=== PATIENT | female | born 1975 | race Caucasian/White ===

== ENCOUNTER 2017-10-16 17:19 | Emergency (ER) | payer SELFPAY ==
--- NOTE | 2017-10-16 19:06 | PD ---
HPI Chief Complaint low fluid Date Seen: Oct 16, 2017 Time Seen: 18:48 Travel History International Travel<30 Days: No Contact w/Intl Traveler<30Days: No Known Affected Area: No History of Present Illness HPI pt. is a at 39 5/7 weeks swedish speaking, with edc 10/19/17, c/o decreased fluid. pt. having care in [place], and here visiting family. pt. states received call today from ob stating fluid was low and go to hospital. pt. was sched for pnv today and missed. +FM, no lof/vb, no ctxs. Weeks Gestation: 39 Para: 5 : 6 History Obstetric History Obstetric History , x 5 Past Surgical History Surgical History: No Previous Surgery Family History Family History: Negative Social History Alcohol Use: No Tobacco Use: No Substance Abuse: No Review of Systems Except as stated in HPI: all other systems reviewed are Neg Physical Exam Narrative GENERAL: Well-nourished, well-developed patient. SKIN: Warm and dry. HEAD: Normocephalic and atraumatic. EYES: No scleral icterus. No injection or drainage. ENT: No nasal drainage noted. Mucous membranes pink. Airway patent. NECK: Supple, trachea midline. No JVD. CARDIOVASCULAR: Regular rate and rhythm without murmurs, gallops, or rubs. RESPIRATORY: Breath sounds equal bilaterally. No accessory muscle use. BREASTS: Bilateral exam showed no masses , no retractions, no nipple discharge. ABDOMEN/GI: Abdomen soft, non-tender, bowel sounds present, no rebound, no guarding Gravid Uterine Contractions: none FHT's: Category:1 Reactive: + Variability: mod Decels: none EXTREMITIES: No cyanosis or edema. BACK: Nontender without obvious deformity. No CVA tenderness. NEUROLOGICAL: Awake and alert. Motor and sensory grossly within normal limits. Five out of 5 muscle strength in all muscle groups. Normal speech. Data Data Orders Orders Heart Surgeon Clear For Discharge (10/16/17 ) Group B Strep: Positive MDM Medical Record Reviewed: Yes Plan pt. to be d/c to home. we obtained a copy of her records. pt. has signed consent for tubal. pt. aarti=16cm. pt. given precautions for return. modified bpwnl. pt. to f/u as sched. Diagnosis Diagnosis: Primary Impression: 39 weeks gestation of Additional Impression: AARTI (amniotic fluid index) decreased David Colon Jr., MD Oct 16, 2017 19:06
== END 2017-10-16 19:25 | disposition home or self-care (01) ==
LOC: HOBED 17:19
DX: O42.92 Full-term premature rupture of membranes, unspecified as to length of time between rupture and onset of labor (principal); Z3A.39 39 weeks gestation of pregnancy
CPT/HCPCS: 59025; 76815

== ENCOUNTER 2017-10-20 09:55 | Emergency (ER) | payer SELFPAY ==
--- NOTE | 2017-10-20 10:45 | PD ---
HPI Chief Complaint Labor Check Date Seen: Oct 20, 2017 Time Seen: 10:00 Travel History International Travel<30 Days: No Contact w/Intl Traveler<30Days: No Known Affected Area: No History of Present Illness HPI 41YO at 40/1 weeks singaporean speaking with EDC 10/19/[place] 20 [place] presents for a labor check. Pt gets PNC in [facility] at the [facility] and was last seen in September (and in this ED on 10/17). Pt is homeless and is currently staying with her sister and her . Pt denies contractions, vaginal bleeding and loss of fluid. Denies GDM and HTN during . All previous deliveries were without complications but all required induction. Denies previous infection during . She is taking a multivitamin and labs have indicated she is GBS+ with no other abnormal lab values. Denies EtOH, tobacco, drugs. Tenebril interpreter deaf was used during the first call (CarFin [id number]) and during/after the cervical exam by Dr Glaser a second call was placed ([phone] [id number] ) to discuss discharge and provide information/education to the pt. Weeks Gestation: 40 Para: 4 : 6 History Past Medical History Medical History: Denies Significant Hx Obstetric History Obstetric History Past Surgical History Narrative Surgical D&C 2015 Family History Narrative Family History Diabetes Social History Alcohol Use: No Tobacco Use: No Substance Abuse: No Allergies-Medications (Allergen,Severity, Reaction): Coded Allergies: No Known Allergies (Unverified , 10/20/17) Narrative Medication vitamin Review of Systems General / Constitutional: No: Fever, Chills Eyes: No: Blurred Vision, Pain HENT: No: Headaches, Lightheadedness Cardiovascular: No: Chest Pain or Discomfort, Palpitations Respiratory: Short of Breath (occasional), No: Cough Gastrointestinal: No: Nausea, Vomiting, Diarrhea, Abdominal Pain Genitourinary: No: Dysuria Musculoskeletal: Pain (back pain), No: Weakness, Cramping Skin: No Rash Neurologic: No: Dizziness Physical Exam Temp 97.6 / HR 62 / BP 130/78 Narrative GENERAL: Well-nourished, well-developed patient. SKIN: Warm and dry. HEAD: Normocephalic and atraumatic. EYES: No scleral icterus. No injection or drainage. ENT: No nasal drainage noted. Mucous membranes pink. Airway patent. NECK: Supple, trachea midline. No JVD. CARDIOVASCULAR: Regular rate and rhythm without murmurs, gallops, or rubs. RESPIRATORY: Breath sounds equal bilaterally. No accessory muscle use. BREASTS: Bilateral exam showed no masses , no retractions, no nipple discharge. ABDOMEN/GI: Abdomen soft, non-tender, bowel sounds present, no rebound, no guarding Gravid to 40 weeks size Fundal Height: 40 GENITOURINARY: External Genitalia: intact and normal in appearance BUS glands: - Cervix: closed Dilatation: 0 Effacement: thick Station: - Presentation: - Membranes: intact Uterine Contractions: irregular >10min FHT's: Category: 1 Baseline: 130 Reactive: y Variability: moderate Decels: none EXTREMITIES: No cyanosis or edema. BACK: Nontender without obvious deformity. No CVA tenderness. NEUROLOGICAL: Awake and alert. Motor and sensory grossly within normal limits. Five out of 5 muscle strength in all muscle groups. Normal speech. Data Data Vital Signs Reviewed: Yes Orders Orders Vital Signs (Adult) .ON ADMISSION (10/20/17 10:30) ^ Labor Status (10/20/17 10:30) ^ Non Stress Test (10/20/17 10:30) ^ Hydration (10/20/17 10:30) Group B Strep: Positive MDM Medical Record Reviewed: Yes Narrative Course / MDM 41YO at 40/1 weeks here for a labor check; cervix is closed, posterior and thick; membranes intact; pt is having irregular ctx spaced apart, but pt does not feel them; discussed with pt the need to schedule induction beginning at 41 weeks, but not before that, unless there is leakage of fluid or vaginal bleeding or decreased movement. Plan Pt discharged home; will continue to monitor movement there -Take PNV daily Diagnosis Diagnosis: Primary Impression: Postmaturity , 40-42 weeks gestation Disposition: DISCHARGE HOME Condition: Stable Patient Instructions: Movement (ED) Dannie Bryant MD R1 Oct 20, 2017 10:45
== END 2017-10-20 11:46 | disposition home or self-care (01) ==
LOC: HOBED 09:55
DX: O26.893 Other specified pregnancy related conditions, third trimester (principal); Z3A.40 40 weeks gestation of pregnancy
CPT/HCPCS: 59025

== ENCOUNTER 2017-10-27 10:31 | Inpatient (IN) | payer MEDICAID ==
[2017-10-27] VITALS (7 sets, daily range): BP systolic 135–150; BP diastolic 64–81; PULSE 45–57; RESP 16–18; TEMP 98.2–98.5
[~2017-10-27] VITALS: Ht 154.9 cm; Wt 82.0 kg
[2017-10-27] MEDS ORDERED: LACTATED RINGER'S 1000 ML INJ 1,000 ML IV PRN (11:10)
[2017-10-27] MEDS ORDERED: PENICILLIN G POTASSIUM INJ 5,000,000 UNITS in SODIUM CHLORIDE 0.9% INJ 100 ML IV ONE (11:15)
[2017-10-27] MEDS ORDERED: MINERAL OIL 10 ML VIAL TOPICAL PRN (11:15)
[2017-10-27] MEDS ORDERED: OXYTOCIN 30 UNITS-500ML PREMIX 500 ML IV ONE (11:15)
[2017-10-27] MEDS ORDERED: SODIUM CHLORID 0.9% 500 ML INJ 500 ML IV PRN (11:15)
[2017-10-27] MEDS ORDERED: CITRIC ACID-SODIUM CITRATE LIQ 30 ML UDC PO SCH (11:15)
[2017-10-27] MEDS ORDERED: LIDOCAINE HCL 1% 50 ML VIAL INFIL PRN (11:15)
[2017-10-27] MEDS ORDERED: LIDOCAINE HCL 1% 50 ML VIAL I-DERMAL PRN (11:15)
[2017-10-27] MEDS ORDERED: SODIUM CHLOR 0.9% 1000 ML INJ 1,000 ML IV PRN (11:30)
[2017-10-27] MEDS ORDERED: PREN29TA PO (11:51)
[2017-10-27] MEDS: LACTATED RINGER'S 1000 ML INJ 1,000 ML IV SCH ×3 (12:03→20:32)
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
[2017-10-27 12:28] LABS: AUTOMATED NEUTROPHIL # 3.3 TH/MM3 (1.8-7.7); BASOPHIL % 0.7 % (0.0-2.0); EOSINOPHIL # 0.1 TH/MM3 (0-0.4); EOSINOPHIL % 0.9 % (0.0-4.0); HEMATOCRIT 33.1 % (35.0-46.0); HEMOGLOBIN 10.4 GM/DL (11.6-15.3); LYMPH % 32.8 % (9.0-44.0); LYMPHOCYTE # 1.9 TH/MM3 (1.0-4.8); MEAN CELL VOLUME 72.7 FL (80.0-100.0); MEAN CORPUSCULAR HGB CONC 31.6 % (32.0-36.0); MONO % 8.2 % (0.0-8.0); MONOCYTE # 0.5 TH/MM3 (0-0.9); NEUT % 57.4 % (16.0-70.0); PLATELET COUNT 212 TH/MM3 (150-450); RED BLOOD COUNT 4.55 MIL/MM3 (4.00-5.30); RED CELL DISTRIBUTION WIDTH 20.4 % (11.6-17.2); WHITE BLOOD COUNT 5.7 TH/MM3 (4.0-11.0)
[2017-10-27 12:33] LABS: BACTERIA, URINE MANY /hpf; BILIRUBIN, URINE NEG (NEG); BLOOD, URINE TRACE (NEG); GLUCOSE,URINE NEG (NEG); KETONE, URINE NEG (NEG); MUCUS URINE FEW /lpf (OCC); NITRITE,URINE NEG (NEG); PH, URINE 6.5 (5.0-8.5); SQUAMOUS EPITHELIAL CELL URINE 13 /hpf (0-5); URINE COLOR YELLOW (YELLW/STRAW); URINE LEUKOCYTE ESTERASE NEG (NEG)
--- NOTE | 2017-10-27 15:26 | PD.LABORPN ---
Subjective Subjective Patient feeling contractions every 10 min Objective Vital Signs Vital Signs Date Time Temp Pulse Resp B/P (MAP) Pulse Ox O2 Delivery O2 Flow Rate FiO2 10/27/17 14:21 57 135/79 (97) 10/27/17 14:21 98.2 18 10/27/17 12:08 52 140/81 (100) Objective Pelvic Exam: Cervix: 2-3/80/-2 Presentation: vertex Membranes: intact Uterine Contractions: irregularly every 7-10 min FHT's: Category: 1 Baseline: 130s Reactive: 160s Variability: mod Decels: absent Weeks Gestation: 41 Assessment/Plan Assessment and Plan 41YO at 41/1 weeks Sierra Leonean speaking and followed by Health Dept in [place] presents in latent phase of labor and post dates . Start Pit 08/22/29 1. IUP, post-dates @ 41/1 weeks -Cervix 3/80/-2 with reassuring FHTs -Monitor and toco -GBS+, PCN per protocol, initial dose @1221 -Consider epidural -If --Pt desires tubal ligation --Signed consent form on chart DW Dr. Glaser, labor RN Cheli Almonte MD R2 Oct 27, 2017 15:26
[2017-10-27] MEDS ORDERED: OXYTOCIN 30 UNITS-500ML PREMIX 500 ML IV PRN (15:30)
[2017-10-27] MEDS: PENICILLIN G POTASSIUM INJ 2,500,000 UNITS in SODIUM CHLORIDE 0.9% INJ 100 ML IV SCH ×2 (16:40→20:33)
[2017-10-27] MEDS ORDERED: ePHEDrine/NS 25 MG/5 ML SYRINGE ONE (17:38)
[2017-10-27] MEDS ORDERED: fentaNYL 2MCG-BUPIV 0.125% INJ 100 ML ONE (17:38)
[2017-10-27] MEDS ORDERED: DO NOT ADMINISTER ANTICOAGULANTS PRN (18:30)
[2017-10-27] MEDS ORDERED: NO SYSTEM NARCOTICS PRN (18:30)
[2017-10-27] MEDS ORDERED: fentaNYL 2MCG-BUPIV 0.125% 100 ML EPIDURAL SCH (18:30)
[2017-10-27] MEDS ORDERED: ePHEDrine/NS 25 MG/5 ML SYRINGE IV PUSH PRN (18:30)
[2017-10-27] MEDS: LABETALOL HCL 100 MG/20 ML VIAL IV PUSH PRN (20:32)
[2017-10-27] MEDS ORDERED: LIDOCAINE HCL 1% PF 30 ML VIAL ONE (23:18)
--- NOTE | 2017-10-28 00:47 | PD.OB.DELI ---
Weeks gestation: 41 Pt started active labor?: Yes Active labor start date: Oct 27, 2017 Anesthesia: Epidural Episiotomy: None Vaginal Delivery: Normal Presentation: Occiput anterior Nuchal Cord: x1 Delayed cord clamping (45 sec): Yes Infant: Male Delivery date: Oct 28, 2017 Delivery time: 00:33 One Minute : 8 Five Minute : 9 Weight: 4080 gm Placenta: Spontaneous delivery Laceration: Perineal laceration, 1 deg Repair: Chromic interrupted Estimated blood loss: 200 cc Additional Information massive vulvar edema and varicosites Lucien Glaser II, MD Oct 28, 2017 00:47
[2017-10-28] MEDS ORDERED: DOCUSATE SODIUM 50 MG/SENNA 8.6 MG TAB PO PRN (01:00)
[2017-10-28] MEDS ORDERED: ZOLPIDEM TARTRATE 5 MG TAB PO PRN (01:00)
[2017-10-28] MEDS ORDERED: IBUPROFEN 800 MG TAB PO PRN (01:00)
[2017-10-28] MEDS ORDERED: ACETAMINOPHEN 325 MG TAB PO PRN (01:00)
[2017-10-28] MEDS ORDERED: OXYTOCIN 30 UNITS-500ML PREMIX 500 ML IV SCH (01:00)
[2017-10-28] MEDS ORDERED: WITCH HAZEL 50%/GLYCERIN 12.5% 40 PAD JAR TOPICAL PRN (01:00)
[2017-10-28] MEDS ORDERED: ALUMINUM/MAGNESIUM/SIMETH 30 ML CUP PO PRN (01:00)
[2017-10-28] MEDS ORDERED: ONDANSETRON ODT 4 MG TAB PO PRN (01:00)
[2017-10-28] MEDS ORDERED: SODIUM CHLORIDE 0.9% FLUSH 10 ML FLUSH IV FLUSH PRN (01:00)
[2017-10-28] MEDS ORDERED: oxyCODONE/ACETAMINOPHEN 5 MG/325 MG TAB PO PRN (01:00)
[2017-10-28] MEDS ORDERED: BENZOCAINE 20% TOPICAL SPRAY 60 ML CAN TOPICAL PRN (01:00)
[2017-10-28] MEDS: LABETALOL HCL 100 MG/20 ML VIAL IV PUSH PRN (01:41)
[2017-10-28 06:28] VITALS: BP 172/76; PULSE 49; RESP 17; TEMP 98.4
--- NOTE | 2017-10-28 07:58 | HHI.OB ---
Subjective Post Day: 0 Remarks day # 1. AFVSS overnight. Decreased lochia. Denies dysuria. No breast tenderness. She is feeding the baby via bottle. Appetite good. No nausea or vomiting. Guillermo still in place because of swollen vulva, good UOP noted. Not yet ambulating. Denies calf pain or shortness of breath. Otherwise, she is doing well this morning and has no other concerns. Objective Vitals/I&O Vital Signs Date Time Temp Pulse Resp B/P (MAP) Pulse Ox O2 Delivery O2 Flow Rate FiO2 10/28/17 06:28 98.4 49 17 172/76 (108) 10/27/17 18:00 18 10/27/17 16:44 45 146/69 (94) 10/27/17 16:01 50 137/64 (88) 10/27/17 15:31 98.5 16 10/27/17 15:30 57 150/78 (102) 10/27/17 15:27 57 144/72 (96) 10/27/17 14:21 57 135/79 (97) 10/27/17 14:21 98.2 18 10/27/17 12:08 52 140/81 (100) Objective Remarks GENERAL: Well-nourished, well-developed patient. CARDIOVASCULAR: Regular rate and rhythm without murmurs, gallops, or rubs. RESPIRATORY: Breath sounds equal bilaterally. No accessory muscle use. ABDOMEN/GI: Abdomen soft, non-tender. Fundus: Firm, non-tender at umbilicus. GENITOURINARY: Light to moderate bleeding. EXTREMITIES: No cyanosis or edema, non-tender, without signs of DVT. Medications and IVs Current Medications Medications (Trade) Dose Ordered Sig/Karl Route Start Time Stop Time Status Last Admin (NS Flush) 2 ml BID IV FLUSH 10/28/17 09:00 (NS Flush) 2 ml UNSCH PRN IV FLUSH 10/28/17 01:00 (Tylenol) 650 mg Q4H PRN PO 10/28/17 01:00 (Motrin) 800 mg Q8H PRN PO 10/28/17 01:00 (Percocet 5-325 Mg) 1 tab Q4H PRN PO 10/28/17 01:00 10/28/17 05:38 (Americaine 20% Top Spr) 1 spray Q4H PRN TOPICAL 10/28/17 01:00 (Tucks Pads) 1 applic QID PRN TOPICAL 10/28/17 01:00 (Fang-Colace) 2 tab Q12H PRN PO 10/28/17 01:00 (Ambien) 5 mg HS PRN PO 10/28/17 01:00 (M-M-R Ii Inj) 0.5 ml ONCE ONCE SQ 10/28/17 16:00 10/28/17 16:01 (Boostrix Inj) 0.5 ml ONCE ONCE IM 10/28/17 16:00 10/28/17 16:01 (Mag-Al Plus Susp Liq) 15 ml Q8H PRN PO 10/28/17 01:00 (Zofran Odt) 4 mg Q6H PRN PO 10/28/17 01:00 Assessment/Plan Assessment and Plan 41YO at 41/1 weeks Kyrgyz speaking, PPD# 1 s/p . -Continue routine care. -Acetaminophen and Motrin PRN pain. -Encouraged OOB. Advised pelvic rest for 6 wks. -Re: ctrl, she would like Depo Provera. Will follow her BPs and consider Depo order tomorrow. -Anticipate discharge tomorrow if guillermo removed today. Vulvar Swelling: continue Guillermo, reassess for discontinue orders this evening or tomorrow morning. HTN: unclear if related to pain, will follow. Recommend one-week follow up for BP check. ABHINAV Glaser Discharge Planning 1-2 days Cheli Almonte MD R2 Oct 28, 2017 07:58
[2017-10-28] MEDS ORDERED: NIFEdipine 10 MG CAP PO ONE (10:00)
[2017-10-28] MEDS: SODIUM CHLORIDE 0.9% FLUSH 10 ML FLUSH IV FLUSH SCH (13:59)
[2017-10-28 15:15] VITALS: BP 109/64; PULSE 64; RESP 16; TEMP 98.4; O2SAT 98
[2017-10-28] MEDS ORDERED: DIPHTH/TETANUS/ACEL PERTUSSIS (BOOSTER) 0.5 ML VIAL/PFS IM ONE (16:00)
[2017-10-28] MEDS ORDERED: MEASLES, MUMPS, RUBELLA VACCINE 0.5 ML VIAL SQ ONE (16:00)
--- NOTE | 2017-10-29 09:26 | HHI.OB ---
Subjective Post Day: 1 Remarks day # 1. AFVSS overnight. Decreased lochia. Denies dysuria. No breast tenderness. She is feeding the baby via bottle. Appetite good. No nausea or vomiting. Guillermo removed yesterday evening, no voiding difficulties, good UOP noted. Not yet ambulating. Denies calf pain or shortness of breath. Otherwise, she is doing well this morning and has no other concerns. Corporate General Manager Joselin Zettics used during interview and exam. Objective Vitals/I&O Vital Signs Date Time Temp Pulse Resp B/P (MAP) Pulse Ox O2 Delivery O2 Flow Rate FiO2 10/28/17 15:15 98.4 16 98 10/28/17 15:15 64 109/64 (79) Objective Remarks GENERAL: Well-nourished, well-developed patient. CARDIOVASCULAR: Regular rate and rhythm without murmurs, gallops, or rubs. RESPIRATORY: Breath sounds equal bilaterally. No accessory muscle use. ABDOMEN/GI: Abdomen soft, non-tender. Fundus: Firm, non-tender at umbilicus. GENITOURINARY: Light to moderate bleeding. EXTREMITIES: No cyanosis or edema, non-tender, without signs of DVT. Medications and IVs Current Medications Medications (Trade) Dose Ordered Sig/Karl Route Start Time Stop Time Status Last Admin (NS Flush) 2 ml BID IV FLUSH 10/28/17 09:00 10/28/17 13:59 (NS Flush) 2 ml UNSCH PRN IV FLUSH 10/28/17 01:00 (Tylenol) 650 mg Q4H PRN PO 10/28/17 01:00 (Motrin) 800 mg Q8H PRN PO 10/28/17 01:00 (Percocet 5-325 Mg) 1 tab Q4H PRN PO 10/28/17 01:00 10/28/17 05:38 (Americaine 20% Top Spr) 1 spray Q4H PRN TOPICAL 10/28/17 01:00 (Tucks Pads) 1 applic QID PRN TOPICAL 10/28/17 01:00 (Fang-Colace) 2 tab Q12H PRN PO 10/28/17 01:00 (Ambien) 5 mg HS PRN PO 10/28/17 01:00 (Mag-Al Plus Susp Liq) 15 ml Q8H PRN PO 10/28/17 01:00 (Zofran Odt) 4 mg Q6H PRN PO 10/28/17 01:00 Assessment/Plan Assessment and Plan 41YO at 41/1 weeks Lithuanian speaking, PPD# 1 s/p . Wants to go home today. Guillermo removed yesterday and voiding well -Continue routine care. -Acetaminophen and Motrin PRN pain. -Encouraged OOB. Advised pelvic rest for 6 wks. -Re: ctrl, she would like Depo Provera. Will follow her BPs and consider Depo order tomorrow. -Anticipate discharge tomorrow if guillermo removed today. Vulvar Swelling: continue Guillermo, reassess for discontinue orders this evening or tomorrow morning. HTN: unclear if related to but wnl today, will follow. did not require antiHTN medications. Will hold off on DepoProvera given HTN. Recommend one-week follow up for BP check. ABHINAV Zamarripa Discharge Planning Discharge today or tomorrow, one week BP check Cheli Almonte MD R2 Oct 29, 2017 09:26
[2017-10-29 20:16] VITALS: BP 130/76; PULSE 58; RESP 19; TEMP 98.4
[2017-10-30] MEDS ORDERED: ACET325T15 PO (08:15)
[2017-10-30] MEDS ORDERED: IBUP1TAB7 PO (08:15)
--- NOTE | 2017-10-30 08:16 | HHI.DCPOC ---
Discharge Care Plan Report Symptoms to Your Doctor -Temperature above 100.5 degrees -Redness, of incision or excessive or foul smelling drainage -Unusual pain or calf pain -Increased vaginal bleeding -Painful or difficulty urinating -Feelings of extreme sadness or anxiety after 2 weeks Goals to Promote Your Health * To prevent worsening of your condition and complications, please take all medications as prescribed and only if needed. * To maintain your health at the optimal level, please follow-up with your OB/ GEOPOLITICS TEACHER in 6 weeks. Directions to Meet Your Goals Take your medications as prescribed Follow your dietary instruction Follow activity as directed Ensure plenty of rest for recovery Drink fluids for hydration Keep your appointments as scheduled Take your immunizations and boosters as scheduled If your symptoms worsen call your PCP, if no PCP go to Urgent Care Center or Emergency Room Smoking is Dangerous to Your Health. Avoid second hand smoke Call the 24-hour crisis hotline for domestic abuse at Dannie Bryant MD R1 Oct 30, 2017 08:16
--- NOTE | 2017-10-30 08:22 | HHI.OB ---
Subjective Post Day: 2 Remarks day # 2. AFVSS overnight. SBPs 130s-140s. No symptoms. Decreased lochia. Denies dysuria. No breast tenderness. She is feeding the baby via formula. Appetite good. No nausea or vomiting. Voiding without difficulty, ambulating well. Denies calf pain or shortness of breath. Otherwise, she is doing well this morning and has no other concerns. Spiral Tube Winder Helper [id number] used during interview and exam. Objective Vitals/I&O Vital Signs Date Time Temp Pulse Resp B/P (MAP) Pulse Ox O2 Delivery O2 Flow Rate FiO2 10/29/17 20:16 98.4 58 19 130/76 (94) Objective Remarks GENERAL: Well-nourished, well-developed patient. CARDIOVASCULAR: Regular rate and rhythm without murmurs, gallops, or rubs. RESPIRATORY: Breath sounds equal bilaterally. No accessory muscle use. ABDOMEN/GI: Abdomen soft, non-tender. Fundus: Firm, non-tender at umbilicus. GENITOURINARY: Light to moderate bleeding. EXTREMITIES: No cyanosis or edema, non-tender, without signs of DVT. Medications and IVs Current Medications Medications (Trade) Dose Ordered Sig/Karl Route Start Time Stop Time Status Last Admin (NS Flush) 2 ml BID IV FLUSH 10/28/17 09:00 10/28/17 13:59 (NS Flush) 2 ml UNSCH PRN IV FLUSH 10/28/17 01:00 (Tylenol) 650 mg Q4H PRN PO 10/28/17 01:00 (Motrin) 800 mg Q8H PRN PO 10/28/17 01:00 (Percocet 5-325 Mg) 1 tab Q4H PRN PO 10/28/17 01:00 10/28/17 05:38 (Americaine 20% Top Spr) 1 spray Q4H PRN TOPICAL 10/28/17 01:00 (Tucks Pads) 1 applic QID PRN TOPICAL 10/28/17 01:00 (Fang-Colace) 2 tab Q12H PRN PO 10/28/17 01:00 (Ambien) 5 mg HS PRN PO 10/28/17 01:00 (Mag-Al Plus Susp Liq) 15 ml Q8H PRN PO 10/28/17 01:00 (Zofran Odt) 4 mg Q6H PRN PO 10/28/17 01:00 Assessment/Plan Assessment and Plan 41YO female [place]-speaking , PPD# 2 s/p . Wants to go home today. -Continue routine care. -Acetaminophen and Motrin PRN pain. -Encouraged OOB. Advised pelvic rest for 6 wks. -Re: ctrl, she would like Depo Provera. Depo deferred for patient's post- visit given BP. -Discharge today. HTN: unclear if related to but wnl over 24hr. Did not require antiHTN medications. Will hold off on DepoProvera given HTN. Recommend one-week follow up for BP check. DW Dr. Glaser Discharge Planning Discharge today Cheli Almonte MD R2 Oct 30, 2017 08:22
[2017-10-30] MEDS: SODIUM CHLORIDE 0.9% FLUSH 10 ML FLUSH IV FLUSH SCH (09:00)
== END 2017-10-30 12:23 | disposition home or self-care (01) | DRG 775 ==
LOC: HOBED 10:31 → H2EB 11:19 → H1EA 10-28 05:55
PROVIDERS: ADMIT Obstetrics & Gynecology Maternal & Fetal Medicine; ATTEND Obstetrics & Gynecology Maternal & Fetal Medicine
PROC: 10E0XZZ Delivery of Products of Conception, External Approach (ICD-10-PCS; principal; 2017-10-27)
PROC: 0HQ9XZZ Repair Perineum Skin, External Approach (ICD-10-PCS; 2017-10-27)
PROC: 00HU33Z Insertion of Infusion Device into Spinal Canal, Percutaneous Approach (ICD-10-PCS; 2017-10-27)
PROC: 3E0R3BZ Introduction of Anesthetic Agent into Spinal Canal, Percutaneous Approach (ICD-10-PCS; 2017-10-27)
DX: O48.0 Post-term pregnancy (principal); E66.9 Obesity, unspecified; O99.824 Streptococcus B carrier state complicating childbirth; Z37.0 Single live birth; Z3A.41 41 weeks gestation of pregnancy; Z59.0 Homelessness; O99.214 Obesity complicating childbirth; Z68.34 Body mass index [BMI] 34.0-34.9, adult; O70.0 First degree perineal laceration during delivery; Z83.3 Family history of diabetes mellitus
CPT/HCPCS: 59025; 80307; 81001; 85025; 86900; 86901; 87086; 90715; G0481; J2540; J2590; J7120